=== PATIENT | female | born 1945 | race Caucasian/White ===

== ENCOUNTER 2017-05-23 07:30 | Inpatient (IN) | payer MEDICARE, BC ==
[~2017-05-23] VITALS: Ht 165.1 cm; Wt 65.0 kg
[2017-05-23] MEDS ORDERED: MIRA3350 PO (07:43)
[2017-05-23] MEDS ORDERED: SUMA100T2 PO (07:43)
[2017-05-23] MEDS ORDERED: PROBCAP4 PO (07:43)
[2017-05-23] MEDS ORDERED: XANA0.25 PO (07:43)
[2017-05-23] MEDS ORDERED: LISI-538 PO (07:43)
[2017-05-23] MEDS ORDERED: FLEC1TAB PO (07:43)
[2017-05-23] MEDS ORDERED: DILT180C PO (07:43)
[2017-05-23] MEDS ORDERED: SERT50TA PO (07:43)
[2017-05-23] MEDS ORDERED: SIME40DR2 PO (07:43)
[2017-05-23] MEDS ORDERED: NS 1,000 ML IV SCH (08:00)
[2017-05-23] MEDS ORDERED: GAS-125C PO (09:03)
[2017-05-23] MEDS ORDERED: MOM 30ML SUSPENSION UDC PO PRN (09:45)
[2017-05-23] MEDS ORDERED: ONDANSETRON 4MG/2ML VIAL (J2405) IV PRN (09:45)
[2017-05-23] MEDS ORDERED: MORPHINE 2 MG/ML 1ML SYRINGE IV PRN (09:45)
[2017-05-23] MEDS ORDERED: ACETAMINOPHEN TAB 650MG DOSE (2X325MG) PO PRN (09:45)
[2017-05-23] MEDS ORDERED: KETOROLAC 30 MG/ML VIAL (J1885) IV PRN (09:45)
[2017-05-23] MEDS ORDERED: SUMAtriptan SUCCINATE 25 MG TAB PO PRN ×2 (09:45→17:45)
[2017-05-23 10:37] VITALS: BP 164/72
[2017-05-23] MEDS: SENOKOT S TAB PO SCH ×2 (11:39→20:37)
[2017-05-23] MEDS: SERTRALINE HCL 25 MG TABLET PO SCH (11:40)
[2017-05-23] MEDS: PIPERACILLIN/TAZOBACTAM SOD 3.375 GM in D5W MINI-BAG PLUS 50 ML IV SCH ×3 (11:40→21:03)
[2017-05-23] MEDS: PANTOPRAZOLE 40MG INJ (PROTONIX) (C9113) IV SCH (11:40)
[2017-05-23] MEDS: diltiaZEM **CD** 180 MG CAP PO SCH (11:42)
[2017-05-23] MEDS: LISINOPRIL 20 MG TAB PO SCH (11:42)
[2017-05-23] MEDS: HEPARIN SOD (PORCINE) 5000 UNITS/ML VIAL SC SCH ×3 (11:52→20:38)
[2017-05-23] MEDS: FLECAINIDE 50MG TABLET PO SCH ×2 (12:44→21:21)
[2017-05-23] MEDS: LR 1,000 ML IV SCH ×2 (13:07→21:22)
[2017-05-23 14:00] VITALS: BP 165/78
[2017-05-23] MEDS ORDERED: CHLORASEPTIC SPRAY MT PRN (15:45)
[2017-05-23 20:00] VITALS: BP 178/77
[2017-05-23] MEDS ORDERED: HEPARIN SOD (PORCINE) 5000 UNITS/ML VIAL As Ordered ONE (20:32)
[2017-05-23] MEDS ORDERED: ZOSYN 3.375 GM VIAL (J2543) As Ordered ONE (20:32)
[2017-05-23] MEDS ORDERED: ALPRAZolam 0.25 MG TAB PO SCH (21:00)
--- NOTE | 2017-05-23 21:09 | HPE ---
DATE OF ADMISSION: 05/23/2017 CHIEF COMPLAINT: Abdominal pain, nausea and vomiting. HISTORY OF PRESENT ILLNESS: The patient is a 72-year-old female with history of rectal cancer, about 5 years ago had a resection with an end colostomy, presents with nausea, vomiting, abdominal distension that started around 7:00 a.m. yesterday. Since coming to the emergency room and having an NG tube placed and being started on Zofran, her symptoms have improved. She denies any current nausea, vomiting. She is tolerating the NG tube in place without any difficulty and she is still having air and stool in her ostomy. She has never had any symptoms like this in the past. No previous symptoms or signs of bowel obstruction since her surgery. Currently she is comfortable. Abdomen is softer however, she is still having brown output in her NG tube. CT scan does show likely partial obstruction in the mid to proximal small bowel. No signs of any abnormalities in the large intestine. PAST MEDICAL HISTORY: Hypertension, headaches, rectal cancer. PAST SURGICAL HISTORY: Rectal resection. ALLERGIES: CODEINE, PROCHLORPERAZINE, SULFA ANTIBIOTICS. MEDICATIONS: Please see medical record. SOCIAL HISTORY: Denies drug, alcohol, tobacco abuse. FAMILY HISTORY: Noncontributory. REVIEW OF SYSTEMS: Pertinent positives and negatives as stated in the HPI. PHYSICAL EXAMINATION: Temperature 98.4, pulse 103, respirations 19, blood pressure 164/72, pulse oximetry 96% on room air. HEENT: Pupils equally round and reactive to light and accommodation. HEART: S1, S2, regular rate and rhythm. LUNGS: Clear to auscultation bilaterally. ABDOMEN: Soft, nontender, nondistended. There is an ostomy in the left lower quadrant that is soft. No signs of parastomal hernia. There is stool in the bag. EXTREMITIES: No clubbing, cyanosis or edema. LABORATORY DATA: They are reviewed from outside hospital. No current labs obtained here. However, her white count was around 12,000, lactic acid was normal on transfer from outside hospital. IMAGING STUDIES: CT scan again did show no signs of perforation. The large intestine was normal caliber. Small intestine was slightly distended up to 3.5 cm in the mid to proximal small bowel. No definitive transition point. ASSESSMENT/PLAN: The patient is a 72-year-old female with partial versus complete small bowel obstruction secondary to likely adhesions from previous surgeries, less likely infectious source since there was no signs of inflammation or infection in the bowel cai. Recommendation at this time is to continue with NG tube decompression. She can have ice chips and sips of water. We will start her on a mild antibiotic for now. We will continue to monitor her ostomy output and NG output. Once the NG output decreases we will clamp it and start her on a trial diet. As long as she tolerates that, the NG will be removed, we will advance her diet and discharge her home. If she does not show any signs of improvement or she gets increasing pain, fevers, white count, lactic acid over the next 48-72 hours then we will consider surgery.
[2017-05-24] MEDS: PIPERACILLIN/TAZOBACTAM SOD 3.375 GM in D5W MINI-BAG PLUS 50 ML IV SCH ×2 (03:50→09:28)
[2017-05-24] MEDS: HEPARIN SOD (PORCINE) 5000 UNITS/ML VIAL SC SCH (05:04)
[2017-05-24 06:00] VITALS: BP 137/71
[2017-05-24] MEDS: LR 1,000 ML IV SCH (06:11)
[2017-05-24 06:16] LABS: MEAN CORPUSCULAR HEMOGLOBIN 34.7 pg (27.0-33.0); MEAN CORPUSCULAR VOLUME 94.6 fl (80.0-96.0); RED CELL DISTRIBUTION WIDTH 12.6 % (11.5-14.5); WHITE BLOOD COUNT 5.3 K/mm3 (4.0-10.0)
[2017-05-24 06:19] LABS: MEAN CORPUSCULAR HGB CONC 35.8 g/dl (32.0-36.5)
[2017-05-24 06:35] LABS: ALBUMIN 3.5 GM/DL (3.2-5.2); ALBUMIN/GLOBULIN RATIO 1.35 (1.00-1.93); ALKALINE PHOSPHATASE 71 U/L (45-117); ALT/SGPT 18 U/L (12-78); ANION GAP 7 MEQ/L (8-16); AST/SGOT 16 U/L (15-37); BILIRUBIN,TOTAL 0.8 MG/DL (0.2-1.0); BLOOD UREA NITROGEN 5 MG/DL (7-18); CALCIUM LEVEL 8.6 MG/DL (8.8-10.2); CARBON DIOXIDE LEVEL 26 MEQ/L (21-32); CHLORIDE LEVEL 101 MEQ/L (98-107); CREATININE FOR GFR 0.65 MG/DL (0.55-1.02); GLOMERULAR FILTRATION RATE > 60.0 (>39); GLUCOSE, FASTING 89 MG/DL (83-110); POTASSIUM SERUM 3.4 MEQ/L (3.5-5.1); SODIUM LEVEL 134 MEQ/L (136-145); TOTAL PROTEIN 6.1 GM/DL (6.4-8.2)
[2017-05-24] MEDS: PANTOPRAZOLE 40MG INJ (PROTONIX) (C9113) IV SCH (09:20)
[2017-05-24 09:25] VITALS: BP 130/82
[2017-05-24] MEDS: SENOKOT S TAB PO SCH (09:25)
[2017-05-24] MEDS: LISINOPRIL 20 MG TAB PO SCH (09:25)
[2017-05-24] MEDS: SERTRALINE HCL 25 MG TABLET PO SCH (09:27)
[2017-05-24] MEDS: diltiaZEM **CD** 180 MG CAP PO SCH (09:27)
[2017-05-24] MEDS: FLECAINIDE 50MG TABLET PO SCH (09:40)
[2017-05-24 14:00] VITALS: BP 116/53
--- NOTE | 2017-05-28 09:41 | DSES ---
DATE OF ADMISSION: 05/23/2017 DATE OF DISCHARGE: 05/24/2017 ADMISSION DIAGNOSIS: Small bowel obstruction. DISCHARGE DIAGNOSIS: Small bowel obstruction. HOSPITAL COURSE: The patient is 72-year-old female presented from [facility] with diagnosis of small bowel obstruction. She has a history of rectal cancer with an end colostomy done about 5 years ago. This is the first time she has had any complications since then. She developed nausea, vomiting and abdominal distension early in the morning of the without any improvement. She went to the emergency room in [place] for evaluation and she was transferred to our facility very early in the morning on the . On exam, she was already starting to feel significantly improved. She had a large amount of nasogastric tube output. Her abdomen is soft. Nausea and vomiting had subsided and all of her pain had subsided. The NG tube was left in place. It was clamped and she was started on clear liquid diet on the afternoon of the , because she was having very large amounts of output from her ostomy as well. By the evening of the , the NG tube was removed and in the morning of the she was started on a regular diet. She continued to tolerate that with increasing output from ostomy and she was discharged home on the afternoon of the . All of her labs and vitals were stable throughout admission. No problems with any pain, nausea, vomiting. She was tolerating diet. She was discharged home with the diagnosis small bowel obstruction, asked to call me with any changes in her symptoms. Otherwise, she will be returning back to her home town just outside of [place] over this weekend. She can followup with me as needed or call with any questions or for copies of her records.
== END 2017-05-24 15:41 | disposition home or self-care (01) | DRG 390 ==
LOC: M ED 07:30 → M ED INP 09:31 → M MSPAV 10:39
PROVIDERS: ADMIT Surgery; ATTEND Surgery
DX: K56.5 Intestinal adhesions [bands] with obstruction (postinfection) (principal); I10 Essential (primary) hypertension; Z88.5 Allergy status to narcotic agent; Z88.2 Allergy status to sulfonamides; Z88.8 Allergy status to other drugs, medicaments and biological substances; Z93.3 Colostomy status